=== PATIENT | male | born 1965 | race Caucasian/White ===

== ENCOUNTER 2022-09-24 19:16 | Emergency (ER) | payer OTHER ==
[~2022-09-24] VITALS: Ht 180.3 cm; Wt 84.1 kg
[2022-09-24 19:54] VITALS: BP 133/75
[2022-09-25] MEDS ORDERED: CEPH250T PO (00:29)
== END 2022-09-25 00:55 | disposition home or self-care (01) ==
LOC: ER 19:16
DX: S61.211A Laceration without foreign body of left index finger without damage to nail, initial encounter (principal); X58.XXXA Exposure to other specified factors, initial encounter; Y93.89 Activity, other specified; Y92.89 Other specified places as the place of occurrence of the external cause; Y99.8 Other external cause status
CPT/HCPCS: 12002; 73140; 99283